=== PATIENT | male | born 2000 | race Two or more races ===

== ENCOUNTER 2024-04-09 07:06 | Emergency (ER) | payer MEDICAID, OTHER ==
[~2024-04-09] VITALS: Ht 185.4 cm; Wt 99.4 kg
[2024-04-09 07:40] VITALS: BP 154/103; PULSE 85; RESP 16; TEMP 99.2; O2SAT 97
[2024-04-09] MEDS ORDERED: ALBU108A5 IN (09:29)
[2024-04-12] MEDS ORDERED: FLUT250M2 INH (04:32)
== END 2024-04-09 09:29 | disposition home or self-care (01) ==
LOC: ER 07:06
DX: R07.89 Other chest pain (principal)
CPT/HCPCS: 71046

== ENCOUNTER 2025-05-20 03:08 | Emergency (ER) | payer MEDICAID, OTHER ==
[~2025-05-20] VITALS: Ht 185.4 cm; Wt 91.6 kg
[~2025-05-20 03:08] MED LIST: ALBU108A5 IN
[2025-05-20] MEDS ORDERED: ZOFR4T PO (03:26)
[2025-05-20] MEDS ORDERED: ACET500T58 PO (03:26)
--- NOTE | 2025-05-20 03:26 | ED.PDOC ---
History of Present Illness HPI Comments 25-year-old male presents to ER with complaints of flu-like symptoms x2 days. Patient reports that he has been experiencing intermittent fever, intermittent nausea/vomiting, diarrhea, body aches and mild dry cough x2 days. He rates his current pain a 5/10 and reports he has been taking Mucinex for her symptoms without relief. Patient presents to ER with low-grade fever on arrival at one 100.7 F, ambulatory, with steady gait, in no distress. Denies shortness of breath, chest pain, headache, dizziness, abdominal pain, bloody diarrhea, changes in urination or any further symptoms/complaints Chief Complaint: Nausea/Vomiting Time Seen by MD: 03:18 Primary Care Provider: UNKNOWN Reviewed Notes: Nurses Notes, Medications, Allergies Information Source: Patient Mode of Arrival: Ambulatory Past Medical History PAST MEDICAL HISTORY: Denies Surgical History: Denies all surgeries Family History Family History: Unknown Social History Smoker: Non-Smoker Alcohol: Denies ETOH Use Drugs: Denies Drug Use Lives In: Home Constitutional: See HPI EENTM: No Symptoms Reported Respiratory: See HPI Cardiovascular: No Symptoms Reported Gastrointestinal: See HPI Genitourinary: No Symptoms Reported Neurological: No Symptoms Reported Musculoskeletal: No Symptoms Reported Integumentary: No Symptoms Reported Allergic/Immunocompromised: others (DENIES) Hematologic/Lymphatic: No Symptoms Reported Endocrine: No Symptoms Reported Psychiatric: No symptoms Reported Physical Exam General Appearance: No Apparent Distress HEENT: Normal ENT Inspection, PERRL/EOMI, Pharynx Normal, TMs Normal Neck: Full Range of Motion, Non-Tender, Normal Respiratory: Chest Non-Tender, Lungs Clear, No Accessory Muscle Use, No Respiratory Distress, Normal Breath Sounds Cardiovascular: No Murmur, No Gallop, Regular Rate/Rhythm Breast Exam: Deferred Gastrointestinal: No Organomegaly, Non Tender, No Pulsatile Mass, Normal Bowel Sounds, Soft Genitalia: Deferred Pelvic: Deferred Rectal: Deferred Extremities: Normal capillary refill, Normal range of motion Neurologic: Alert, vacuum cleaner operator II-XII nml as Tested, No Motor Deficits, Normal Affect, Normal Mood, No Sensory Deficits Cerebellar Function: Normal Reflexes: Normal Skin: Dry, Normal Color, Warm Peripheral Pulses: 2+ Radial (R), 2+ Radial (L), 2+ Brachial (R), 2+ Brachial (L) Lymphatic: No Adenopathy Was a procedure done? Was a procedure done?: No Sedation Sedation?: No Fever Differential Dx Differential Diagnosis: Pneumonia, Sepsis, UTI, Other (COVID-19, INFLUENZA) X-Ray, Labs, Meds, VS Vital Signs Date Time Temp Pulse Resp B/P (MAP) Pulse Ox O2 Delivery O2 Flow Rate FiO2 05/20/25 03:31 99 Room Air* 0 21 05/20/25 03:31 100.7 104 20 135/96 (109) 99 100.7 05/20/25 03:28 100.7 05/20/25 03:10 100.7 104 20 135/96 99 100.7 Lab Test 05/20/25 03:25 05/20/25 03:20 Range/Units Influenza Type A Antigen Negative Negative Influenza Type B Antigen Negative Negative SARS-CoV-2 Antigen (Rapid) Negative NEGATIVE Urine Color Yellow Yellow Urine Clarity Clear Clear Urine pH 6.5 5.0-9.0 Urine Specific [place] 1.027 1.001-1.035 Urine Protein Trace H Negative Urine Ketones 1+ H Negative Urine Blood 1+ H Negative /uL Urine Nitrite Negative Negative Urine Bilirubin Negative Negative Urine Urobilinogen Over Negative mg/dL Urine Leukocyte Esterase Negative Negative /uL Urine RBC 12 0 - 3 /hpf Urine Microscopic WBC 1 0-3 /HPF Urine Squamous Epithelial Cells None seen <5 /hpf Urine Bacteria None seen None Seen /hpf Urine Mucus Few None Seen Urine Glucose Normal Normal mg/dL Current Medications Medications (Trade) Dose Ordered Sig/Erickson Route Start Time Stop Time Status Last Admin Ondansetron HCl (Zofran Po) 4 mg ONCE ONCE PO 05/20/25 03:30 05/20/25 03:31 DC 05/20/25 03:28 Acetaminophen (Tylenol Tablet) 650 mg ONCE ONCE PO 05/20/25 03:30 05/20/25 03:31 DC 05/20/25 03:28 Tylenol 650 mg p.o. ordered Ibuprofen 800 mg p.o. ordered Zofran 4 mg p.o. ordered Swab results reviewed-negative Urinalysis reviewed without any significant abnormalities Patient tolerating p.o. intake well, well appearing and in no distress prior to discharge Diet education discussed Advised to follow up with PCP in 1-2 days Patient verbalized understanding and agreeable with current plan of care Advised to return to ER immediately if symptoms worsen Time of 1ST Reevaluation: 03:24 Reevaluation 1ST: N/A Patient Education/Counseling: Diagnosis, Treatment, Prognosis, Need For Follow Up Family Education/Counseling: No Family Present SEPSIS Sepsis Screen Date sepsis recognized/suspect: May 20, 2025 Time Sepsis recognized/suspect: 312 Recent Procedure: No On Antibiotic Therapy: No Respiratory Rate >20: No Heart Rate >90: Yes Temp<36 C (96.8 F) or >38.3 C: No SBP <90 or MAP <65 mmHG: No New Acute Mental Status Change: No Is the patient on CPAP, BIPAP,: No Vital Signs Date Time Temp Pulse Resp B/P (MAP) Pulse Ox O2 Delivery O2 Flow Rate FiO2 05/20/25 03:31 99 Room Air* 0 21 05/20/25 03:31 100.7 104 20 135/96 (109) 99 100.7 05/20/25 03:28 100.7 05/20/25 03:10 100.7 104 20 135/96 99 100.7 Medications Medications Dose Ordered Sig/Erickson Route Start Time Stop Time Status Last Admin Dose Admin Acetaminophen 650 mg ONCE ONCE PO 05/20/25 03:30 05/20/25 03:31 DC 05/20/25 03:28 Ondansetron HCl 4 mg ONCE ONCE PO 05/20/25 03:30 05/20/25 03:31 DC 05/20/25 03:28 Departure 1 Departure Time of Disposition: 04:20 Impression: Primary Impression: Viral gastroenteritis Additional Impression: Viral URI Disposition: 01 HOME / SELF CARE / HOMELESS Condition: Stable e-Prescriptions Ondansetron Odt 4MG Tab (ZOFRAN PO) 4 Mg Tb 4 MG PO Q8HPRN, #10 TAB 0 Refills ODT TAB-DISSOLVE IN MOUTH, THEN SWALLOW Prov: CASSIDY HICKS 05/20/25 Acetaminophen (Acetaminophen) 500 Mg Tab 500 MG PO Q4HPRN, #30 TAB 0 Refills Prov: CASSIDY HICKS 05/20/25 Discharged With: Self Critical Care Note Critical Care Time?: No Stability Stability form required: No Heart Score Heart Score: Heart Score Response (Comments) Value History N/A 0 EKG N/A 0 Age N/A 0 Risk Factors N/A 0 Troponin N/A 0 Total 0 CASSIDY HICKS May 20, 2025 03:26
[2025-05-20] MEDS: ONDANSETRON ODT 4 MG TAB PO ONE (03:28)
[2025-05-20] MEDS: ACETAMINOPHEN 325 MG TAB PO ONE (03:28)
[2025-05-20 03:31] VITALS: BP 135/96; PULSE 104; RESP 20; O2SAT 99
[2025-05-20 04:13] LABS: Urine Protein, UAD TRACE (Negative)
[2025-05-20 04:14] LABS: COVID19 ANTIGEN SOFIA FIA NEGATIVE (NEGATIVE)
[2025-05-20 04:27] VITALS: TEMP 101.7
[2025-05-20] MEDS: IBUPROFEN 800 MG TAB PO ONE (04:27)
== END 2025-05-20 04:31 | disposition home or self-care (01) ==
LOC: ER 03:08
DX: A08.4 Viral intestinal infection, unspecified (principal); J06.9 Acute upper respiratory infection, unspecified; B97.89 Other viral agents as the cause of diseases classified elsewhere; Z20.822 Contact with and (suspected) exposure to COVID-19
CPT/HCPCS: 36415; 81001; 87426; 87804; 99284; Q0162